=== PATIENT | male | born 1965 | race Caucasian/White ===

== ENCOUNTER 2016-07-23 17:09 | Emergency (ER) | payer OTHER ==
[~2016-07-23] VITALS: Ht 180.3 cm; Wt 86.2 kg
[~2016-07-23 17:09] MED LIST: FLEXERIL10 MG PO; GLIMEPIRIDE4 M1 PO; GLIPIZIDE5 MG PO; LIDODERM 5% PAT1 PAT TOP; METFORMIN HCL500 MG PO; SPIRIVA18 MCG INH; SYMBICORT 80-10.2 GM INH
[2016-07-23 17:32] VITALS: BP 134/95
--- NOTE | 2016-07-23 18:30 | ED GENERAL ADULT ---
History of Present Illness General Chief Complaint: General Adult Stated Complaint: SHOULDER PAIN, X 2 HR Vital Signs & Intake/Output Vital Signs & Intake/Output Vital Signs Date Time Temp Pulse Resp B/P Pulse O2 O2 Flow FiO2 Ox Delivery Rate 07/23 1732 97.8 95 20 134/95 95 Room Air Room Air Allergies Coded Allergies: NO KNOWN ALLERGIES (07/10/11) Reconcile Medications Budesonide/Formoterol Fumarate (Symbicort 80-4.5 Mcg Inhaler) 10.2 GM HFA.AER.AD 2 PUF INH BID BREATHING PROBLEMS (Reported) Glimepiride 4 MG TABLET 2 TAB PO DAILY DIABETES (Reported) Glipizide 5 MG TABLET 1 TAB PO DAILY DIABETES (Reported) Metformin Hydrochloride (Metformin HCl) 500 MG TAB 1 TAB PO BID DIABETES ( Reported) Tiotropium [place] (Spiriva) 18 MCG CAP.W.DEV 1 CAP INH DAILY BREATHING PROBLEMS (Reported) Triage Note: PT TO ED WITH C/O LEFT CHEST PAIN "THE LAST TIME I HAD THIS I HAD A HEART ATTACK LAST SEPTEMBER". EKG DONE IN [place] PRIOR TO TRIAGE. PT CONTINUES TO C/O LEFT SHOULDER AREA PAIN. 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 MOTHER (mOTHER AT AGE 57 WITH HEART ATTACK). UNCLE (aLL OF HEART ATTACK /OK AT AGE 64). MOTHER Relation not specified for: FH: CAD (coronary artery disease) Progress Plan of Care: Orders Procedure Date/time Status EKG 07/23 1712 Active Departure Departure Condition: Stable Referrals: JUAN FUNK MD (PCP/Family) Departure Forms: Customer Survey General Discharge Information
== END 2016-07-23 18:36 | disposition admitted as inpatient to this hospital (09) ==
LOC: ERH 17:09
DX: R07.9 Chest pain, unspecified (principal)
CPT/HCPCS: 93005; 93010; 99281

== ENCOUNTER 2016-08-06 23:09 | Emergency (ER) | payer OTHER ==
[~2016-08-06] VITALS: Ht 180.3 cm; Wt 86.2 kg
[2016-08-06 23:46] LABS: ABSOLUTE BASOPHIL COUNT 0 /CUMM (0.0-0.2); ABSOLUTE EOSINOPHIL COUNT 0.2 /CUMM (0.0-0.7); ABSOLUTE GRANULOCYTE CT 6.9 /CUMM (1.4-6.5); ABSOLUTE LYMPH COUNT 3.6 /CUMM (1.2-3.4); BASOPHIL % 0.4 % (0.0-2.0); EOSINOPHIL % 1.7 % (0-5); GRANULOCYTE % 58.7 % (42.2-75.2); HEMATOCRIT 46.1 % (42-52); MEAN CORPUSCULAR HGB CONC 33.5 G/DL (33.0-37.0); MEAN CORPUSCULAR VOLUME 89.8 FL (80.0-94.0); MEAN PLATELET VOLUME 6.6 FL (7.4-10.4); PLATELET COUNT 260 /CUMM (130-400); RBC DISTRIBUTION WIDTH 13.7 % (11.5-14.5); RED BLOOD CELL CT 5.13 /CUMM (4.70-6.10); WHITE BLOOD CELL COUNT 11.8 /CUMM (4.8-10.8)
--- NOTE | 2016-08-06 23:59 | ED GENERAL ADULT ---
History of Present Illness General Chief Complaint: General Adult Stated Complaint: LOW BLOOD SUGAR FEELS FUNNY, HX DIABETES Source: patient Exam Limitations: no limitations Vital Signs & Intake/Output Vital Signs & Intake/Output Vital Signs Date Time Temp Pulse Resp B/P B/P Pulse O2 O2 Flow FiO2 Mean Ox Delivery Rate 08/07 0442 98.6 84 18 123/78 98 Room Air 08/07 0311 98.5 104 20 127/70 95 Room Air 08/07 0110 97.5 97 20 116/65 95 Room Air 08/07 0020 97 Room Air 08/06 2320 97.9 103 18 144/97 94 Room Air ED Intake and Output 08/07 0000 08/06 1200 Intake Total Output Total Balance Patient 190 lb Weight Weight Reported by Patient Measurement Method Allergies Coded Allergies: NO KNOWN ALLERGIES (07/10/11) Reconcile Medications Budesonide/Formoterol Fumarate (Symbicort 80-4.5 Mcg Inhaler) 10.2 GM HFA.AER.AD 2 PUF INH BID BREATHING PROBLEMS (Reported) Glimepiride 4 MG TABLET 2 TAB PO DAILY DIABETES (Reported) Glipizide 5 MG TABLET 1 TAB PO DAILY DIABETES (Reported) Metformin Hydrochloride (Metformin HCl) 500 MG TAB 1 TAB PO BID DIABETES ( Reported) Tiotropium [place] (Spiriva) 18 MCG CAP.W.DEV 1 CAP INH DAILY BREATHING PROBLEMS (Reported) Triage Note: TRIAGE: PATIENT TO ER REPORTS NIDDM AND "NEVER FELT THIS WAY BEFORE, FEEL WEIRD, MAYBE LOW BLOOD SUGAR." FINGERSTICK 62 IN TRIAGE. BROUGHT TO ROOM 2, PROVIDED ORANGE JUICE AND CRACKERS. REPORTS LAST PO INTAKE PRIOR TO ARRIVAL 7PM TONIGHT. Triage Nurses Notes Reviewed? yes Onset: Abrupt Duration: minute(s):, constant, continues in ED Timing: recent history Injury Environment: home HPI: 50-year-old male comes into emergency room for further evaluation of feeling lightheaded and weird prior to arrival. He had some associated nausea. Denies any chest pain or shortness of breath. Mild headache. Patient reports he had felt hot. History of prior AR. Denies any vomiting or abdominal pain. Denies any other associated symptoms. (ALIZE BOYD,JOSÉ) Past History Travel History Traveled to [place] past 21 day No Medical History Any Pertinent Medical History? 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 MOTHER (mOTHER AT AGE 57 WITH HEART ATTACK). UNCLE (aLL OF HEART ATTACK /AR AT AGE 64). MOTHER Relation not specified for: FH: CAD (coronary artery disease) Hx Contributory? No (JOSÉ SAHU) Review of Systems Review of Systems Constitutional: Reports: no symptoms. EENTM: Reports: no symptoms. Respiratory: Reports: no symptoms. Cardiovascular: Reports: see HPI. GI: Reports: see HPI. Genitourinary: Reports: no symptoms. Musculoskeletal: Reports: no symptoms. Skin: Reports: no symptoms. Neurological/Psychological: Reports: no symptoms. Hematologic/Endocrine: Reports: no symptoms. Immunologic/Allergic: Reports: no symptoms. All Other Systems: Reviewed and Negative (JOSÉ SAHU) Physical Exam Physical Exam General Appearance: well developed/nourished, alert, awake Head: atraumatic, normal appearance Eyes: Bilateral: normal appearance, EOMI. Ears, Nose, Throat: normal pharynx, normal ENT inspection, hearing grossly normal Neck: normal inspection, full range of motion Respiratory: normal breath sounds, no respiratory distress Cardiovascular: regular rate/rhythm Gastrointestinal: soft Back: normal inspection Extremities: normal inspection, normal range of motion, no edema Neurologic/Psych: no motor/sensory deficits, awake, alert, oriented x 3, normal gait, normal mood/affect Skin: intact, normal color Core Measures ACS in differential dx? No CVA/TIA Diagnosis: No Severe Sepsis Present: No Septic Shock Present: No (JOSÉ SAHU) Progress Differential Diagnoses I considered the following diagnoses in my evaluation of the patient: AR, vasovagal, electrolyte imbalance, CVA, anxiety attack, Plan of Care: Orders Procedure Date/time Status TROPONIN LEVEL 08/07 0340 Complete EKG 08/07 0340 Active Add-on Test (ER Only) 08/07 2351 Active EKG 08/07 2351 Active TROPONIN LEVEL 08/06 2336 Complete COMPREHENSIVE METABOLIC PANEL 08/06 2336 Complete CBC WITHOUT DIFFERENTIAL 08/06 2336 Complete Laboratory Tests 08/07/16 0335: Troponin I < 0.01 08/06/162336: Anion Gap 16, Estimated GFR > 60, BUN/Creatinine Ratio 15.0, Glucose 76, Calcium 10.0, Total Bilirubin 0.6, AST 21, ALT 35, Alkaline Phosphatase 75, Troponin I < 0.01, Total Protein 7.8, Albumin 4.6, Globulin 3.2, Albumin/Globulin Ratio 1.4, CBC w Diff NO MAN DIFF REQ, RBC 5.13, MCV 89.8, MCH 30.0, RDW 13.7, MPV 6.6 L, Gran % 58.7, Lymphocytes % 30.5, Monocytes % 8.7, Eosinophils % 1.7, Basophils % 0.4, Absolute Granulocytes 6.9 H, Absolute Lymphocytes 3.6 H, Absolute Monocytes 1.0 H, Absolute Eosinophils 0.2, Absolute Basophils 0, PUBS MCHC 33.5 Initial ED EKG: normal intervals, normal p-waves, normal sinus rhythm, old anterior septal infarct, left anterior fascicular block, Hand-Off Endorsed To: TOMMY DODD MD Endorsed Time: 41 Pending: EKG, labs Comments: 08/07/2016 12:42:41 AM Patient will stay for 2 EKGs and 2 troponins to rule out atypical cardiac presentation. We'll continue to monitor patient's glucose level. Patient signout to Dr. dodd. (JOSÉ SAHU) Departure Departure Condition: Stable Referrals: JUAN FUNK MD (PCP/Family) Departure Forms: Customer Survey General Discharge Information (JOSÉ SAHU) Departure Time of Disposition: 429 Disposition: HOME OR SELF CARE Clinical Impression Primary Impression: Lightheaded Secondary Impressions: Hypoglycemia, Nausea Additional Instructions: No Glipizide today. PA/QUANTOMETER OPERATOR Co-Sign Statement Statement: ED Attending supervision documentation- x I saw and evaluated the patient. I have also reviewed all the pertinent lab results and diagnostic results. I agree with the findings and the plan of care as documented in the PA's/QUANTOMETER OPERATOR's documentation. [] I have reviewed the ED Record and agree with the PA's/QUANTOMETER OPERATOR's documentation. [] Additions or exceptions (if any) to the PAs/QUANTOMETER OPERATOR's note and plan are summarized below: [] (YOUSIF HAGAN,TOMMY) Critical Care Note Critical Care Note Critical Care Time: non-applicable (JOSÉ SAHU)
[2016-08-07 04:42] VITALS: BP 123/78
== END 2016-08-07 04:43 ==
LOC: ERH 23:09
PROVIDERS: Physician Assistant Medical
DX: R42 Dizziness and giddiness (principal); E11.649 Type 2 diabetes mellitus with hypoglycemia without coma; R11.0 Nausea
CPT/HCPCS: 93005; 93010; 96374